=== PATIENT | female | born 1975 | race Caucasian/White ===

== ENCOUNTER 2020-03-03 08:53 | Outpatient (REF) | payer OTHER, SELFPAY ==
[2020-03-03 11:19] LABS: MANUAL DIFF FLAG NO
[2020-03-03 11:34] LABS: Basophils Percent Auto 0.6 % (0-2); Eosinophils Absolute Auto 0.1 X10*3/uL (0.0-0.4); Eosinophils Percent Auto 1.4 % (0-4); Hematocrit 44.5 % (37-47); Hemoglobin 15.1 g/dl (12.0-16.0); Imm Gran Abs Auto 0.03 X10*3/uL (0.00-0.03); Imm Gran Pct Auto 0.5 % (0.0-0.4); Lymphocytes Absolute Auto 1.3 X10*3/uL (1.2-4.9); Lymphocytes Percent Auto 19.2 % (20-40); Mean Corpuscular HGB Conc 33.9 g/dl (31.0-35.0); Mean Corpuscular Volume 91.4 fL (80-98); Mean Platelet Volume 11.3 fL (9.4-12.3); Monocytes Absolute Auto 0.5 X10*3/uL (0.1-1.2); Monocytes Percent Auto 7.8 % (2-11); Neutrophils Absolute Auto 4.6 X10*3/uL (2.0-8.3); Neutrophils Percent Auto 70.5 % (45-73); Platelet Count 280 X10*3/uL (160-400); Red Blood Count 4.87 X10*6/uL (4.20-5.50); Red Cell Distribution Width 11.3 % (11.0-16.0); White Blood Count 6.5 X10*3/uL (4.8-10.8)
[2020-03-03 12:13] LABS: Anion Gap 11 (12-20); Blood Urea Nitrogen 8 mg/dL (9-16); Calcium 8.9 mg/dL (8.4-10.2); Carbon Dioxide 26 mmol/L (22-29); Chloride 105 mmol/L (96-108); Estimated Glomerular Filt Rate > 60; Glucose Random 81 mg/dL (60-115); Potassium 4.1 mmol/l (3.3-5.1); Sodium 138 mmol/L (135-145)
[2020-03-03 12:19] LABS: TSH reflex Free T4 1.54 mIU/mL (0.32-4.0)
== END 2020-03-03 08:54 | disposition home or self-care (01) ==
LOC: HO.HMGCLDS 08:53
PROVIDERS: PCP Internal Medicine; Visit Provider Internal Medicine
DX: R10.13 Epigastric pain (principal); Z91.09 Other allergy status, other than to drugs and biological substances; G43.109 Migraine with aura, not intractable, without status migrainosus; F41.1 Generalized anxiety disorder
CPT/HCPCS: 36415; 80048; 84443; 85025

== ENCOUNTER 2020-09-11 09:13 | Outpatient (REF) | payer BC, SELFPAY ==
--- NOTE | ~2020-09-11 | MM_ITS ---
EXAMINATION: MM SCREENING DIGITAL BREAST TOMOSYNTHESIS, BILATERAL CLINICAL INFORMATION: Screening. Asymptomatic. The lifetime risk of breast cancer based on the Tyrer-Cuzick Model is 16%. COMPARISON: Mammography: 04/07/2019, 03/09/2018, 02/26/2017 TECHNIQUE: Digital breast tomosynthesis is performed in both the craniocaudal and mediolateral oblique views along with computer-aided detection (CAD). Synthesized 2D images are generated from the tomosynthesis. Additional left MLO view is provided. FINDINGS: The breasts are heterogeneously dense, which may obscure small masses (ACR BI-RADS breast composition Category c). There is inhomogeneous parenchymal pattern similar to prior exams. No developing density, significant mass or architectural abnormality. There are scattered punctate calcifications in each breast. The axilla and skin contours are unremarkable. There are no significant changes from prior exams. MM/MM tomosynthesis screening BI IMPRESSION: No mammographic evidence of malignancy. ASSESSMENT: BI-RADS 2: Benign RECOMMENDATION: Routine annual mammography screening. This patient's information was entered into a reminder system with a target due date for their next mammogram.
== END 2020-09-11 09:14 | disposition home or self-care (01) ==
LOC: HO.MAMMO 09:13
PROVIDERS: PCP Internal Medicine; Visit Provider Internal Medicine
DX: Z12.31 Encounter for screening mammogram for malignant neoplasm of breast (principal)
CPT/HCPCS: 77063; 77067

== ENCOUNTER 2020-11-22 11:01 | Outpatient (REF) | payer BC, SELFPAY ==
[2020-11-22 13:55] LABS: MANUAL DIFF FLAG NO
[2020-11-22 13:59] LABS: Basophils Percent Auto 0.7 % (0-2); Eosinophils Absolute Auto 0.1 X10*3/uL (0.0-0.4); Hematocrit 44.7 % (37-47); Hemoglobin 14.6 g/dl (12.0-16.0); Imm Gran Abs Auto 0.03 X10*3/uL (0.00-0.03); Imm Gran Pct Auto 0.5 % (0.0-0.4); Lymphocytes Absolute Auto 1.3 X10*3/uL (1.2-4.9); Lymphocytes Percent Auto 22.6 % (20-40); Mean Corpuscular HGB Conc 32.7 g/dl (31.0-35.0); Mean Corpuscular Hemoglobin 30.7 pg (27.0-33.0); Mean Corpuscular Volume 93.9 fL (80-98); Mean Platelet Volume 11.5 fL (9.4-12.3); Monocytes Absolute Auto 0.5 X10*3/uL (0.1-1.2); Monocytes Percent Auto 9.1 % (2-11); Neutrophils Absolute Auto 3.9 X10*3/uL (2.0-8.3); Neutrophils Percent Auto 65.1 % (45-73); Platelet Count 272 X10*3/uL (160-400); Red Blood Count 4.76 X10*6/uL (4.20-5.50); Red Cell Distribution Width 11.8 % (11.0-16.0); White Blood Count 5.9 X10*3/uL (4.8-10.8)
[2020-11-22 14:31] LABS: Alanine Aminotransferase 17 U/L (0-31); Albumin Level 4.1 g/dL (3.5-5.0); Alkaline Phosphatase 80 U/L (39-117); Anion Gap 13 (12-20); Aspartate Amino Transferase 18 U/L (5-31); Bilirubin Total 0.7 mg/dL (0.0-1.0); Blood Urea Nitrogen 9 mg/dL (9-16); Calcium 9.4 mg/dL (8.4-10.2); Carbon Dioxide 25 mmol/L (22-29); Chloride 104 mmol/L (96-108); Cholesterol 185 mg/dL; Estimated Glomerular Filt Rate > 60; Glucose Fasting 86 mg/dL (60-99); HDL Cholesterol 67 mg/dL; LDL Cholesterol Calculated 108 mg/dl; Potassium 4.3 mmol/L (3.3-5.1); Sodium 138 mmol/L (135-145); Total Protein 7.6 g/dL (6.5-8.0); Triglycerides 54 mg/dL
[2020-11-22 14:54] LABS: TSH reflex Free T4 2.26 uIU/mL (0.32-4.0)
== END 2020-11-22 11:02 | disposition home or self-care (01) ==
LOC: HO.HMGCLDS 11:01
PROVIDERS: PCP Internal Medicine; Visit Provider Internal Medicine
DX: Z00.01 Encounter for general adult medical examination with abnormal findings (principal); F41.1 Generalized anxiety disorder; G43.109 Migraine with aura, not intractable, without status migrainosus
CPT/HCPCS: 36415; 80053; 80061; 84443; 85025

== ENCOUNTER 2020-12-11 07:55 | Outpatient (REF) | payer BC, SELFPAY ==
[2020-12-12 10:46] LABS: BV Int Neg Control Negative (Negative); BV Int Pos Control Positive (Positive)
[2020-12-13 17:00] LABS: HPV mRNA E6/E7 rflx Not Detected (Not Detected)
== END 2020-12-11 07:56 | disposition home or self-care (01) ==
LOC: HO.LAB 07:55
PROVIDERS: PCP Internal Medicine; Visit Provider Advanced Practice Midwife
DX: Z01.411 Encounter for gynecological examination (general) (routine) with abnormal findings (principal); Z11.51 Encounter for screening for human papillomavirus (HPV); N89.8 Other specified noninflammatory disorders of vagina; R10.2 Pelvic and perineal pain; R23.2 Flushing
CPT/HCPCS: 87480; 87510; 87624; 87660; 88142

== ENCOUNTER 2021-03-27 09:47 | Outpatient (REF) | payer OTHER, SELFPAY ==
--- NOTE | ~2021-03-27 | XR_ITS ---
EXAMINATION: XR FOOT, LEFT CLINICAL INFORMATION: Pain. COMPARISON: None TECHNIQUE: AP, lateral, and oblique views of the left foot. FINDINGS: Bone alignment is normal. No fracture or dislocation is seen. The joint spaces are normal. The bones appear osteopenic. There is a plantar calcaneal spur. There is question of mild erosive changes of the plantar surface of the calcaneus near the spur. Soft tissues are otherwise unremarkable. XR/XR foot LT min 3V IMPRESSION: Mild osteopenia. Plantar calcaneal spur and question small erosion of the plantar calcaneus near the spur. Inflammatory arthritis should be considered.
== END 2021-03-27 09:48 | disposition home or self-care (01) ==
LOC: HO.HMGCX 09:47
PROVIDERS: PCP Internal Medicine; Visit Provider Internal Medicine
DX: M79.672 Pain in left foot (principal)
CPT/HCPCS: 73630

== ENCOUNTER 2021-09-12 09:27 | Outpatient (REF) | payer OTHER, SELFPAY ==
--- NOTE | ~2021-09-12 | MM_ITS ---
EXAMINATION: MM SCREENING DIGITAL BREAST TOMOSYNTHESIS, BILATERAL CLINICAL INFORMATION: Screening. Asymptomatic. The lifetime risk of breast cancer based on the Tyrer-Cuzick Model is 19%. COMPARISON: Mammography: 09/11/2020, 04/07/2019, 03/09/2018 TECHNIQUE: Digital breast tomosynthesis is performed in both the craniocaudal and mediolateral oblique views along with computer-aided detection (CAD). Synthesized 2D images are generated from the tomosynthesis. FINDINGS: The breasts are heterogeneously dense, which may obscure small masses (ACR BI-RADS breast composition Category c). There are no significant masses, abnormal calcifications, or other abnormalities. No developing density or architectural abnormality. The axilla and skin contours are unremarkable. Again, there are scattered punctate benign round calcifications. MM/MM tomosynthesis screening BI IMPRESSION: No mammographic evidence of malignancy. ASSESSMENT: BI-RADS 2: Benign RECOMMENDATION: Routine annual mammography screening. This patient's information was entered into a reminder system with a target due date for their next mammogram.
== END 2021-09-12 09:28 | disposition home or self-care (01) ==
LOC: HO.MAMMO 09:27
PROVIDERS: PCP Internal Medicine; Visit Provider Internal Medicine
DX: Z12.31 Encounter for screening mammogram for malignant neoplasm of breast (principal)
CPT/HCPCS: 77063; 77067

== ENCOUNTER 2021-12-12 08:41 | Outpatient (REF) | payer OTHER, SELFPAY ==
[2021-12-12 11:10] LABS: MANUAL DIFF FLAG NO
[2021-12-12 11:36] LABS: Basophils Percent Auto 0.6 % (0-2); Eosinophils Absolute Auto 0.1 X10*3/uL (0.0-0.4); Eosinophils Percent Auto 2.4 % (0-4); Hematocrit 42.6 % (37.0-47.0); Hemoglobin 14.2 g/dl (12.0-16.0); Imm Gran Abs Auto 0.02 X10*3/uL (0.00-0.03); Imm Gran Pct Auto 0.4 % (0.0-0.4); Lymphocytes Absolute Auto 1.1 X10*3/uL (1.2-4.9); Mean Corpuscular HGB Conc 33.3 g/dl (31.0-35.0); Mean Corpuscular Hemoglobin 30.4 pg (27.0-33.0); Mean Corpuscular Volume 91.2 fL (80.0-98.0); Mean Platelet Volume 11.5 fL (9.4-12.3); Monocytes Absolute Auto 0.5 X10*3/uL (0.1-1.2); Monocytes Percent Auto 9.9 % (2-11); Neutrophils Absolute Auto 3.3 x10*3/uL (2.0-8.3); Neutrophils Percent Auto 65.7 % (45-73); Platelet Count 267 X10*3/uL (160-400); Red Blood Count 4.67 X10*6/uL (4.20-5.50); Red Cell Distribution Width 11.7 % (11.0-16.0); White Blood Count 5.1 X10*3/uL (4.8-10.8)
[2021-12-12 12:26] LABS: Alanine Aminotransferase 14 U/L (0-31); Alkaline Phosphatase 82 U/L (39-117); Anion Gap 12 (12-20); Aspartate Amino Transferase 16 U/L (5-31); Bilirubin Total 0.5 mg/dL (0.0-1.0); Blood Urea Nitrogen 11 mg/dL (9-16); Calcium 8.8 mg/dL (8.4-10.2); Carbon Dioxide 25 mmol/L (22-29); Chloride 106 mmol/L (96-108); Cholesterol 156 mg/dL; Estimated Glomerular Filt Rate > 60; Glucose Fasting 109 mg/dL (60-99); HDL Cholesterol 47 mg/dL; LDL Cholesterol Calculated 94 mg/dl; Potassium 4.4 mmol/L (3.3-5.1); Sodium 139 mmol/L (135-145); Total Protein 7.3 g/dL (6.5-8.0); Triglycerides 75 mg/dL
== END 2021-12-12 08:42 | disposition home or self-care (01) ==
LOC: HO.HMGCLDS 08:41
PROVIDERS: Visit Provider Internal Medicine
DX: Z00.01 Encounter for general adult medical examination with abnormal findings (principal); F41.1 Generalized anxiety disorder; G43.109 Migraine with aura, not intractable, without status migrainosus; Z91.09 Other allergy status, other than to drugs and biological substances
CPT/HCPCS: 36415; 80053; 80061; 85025

== ENCOUNTER 2022-01-14 09:13 | Outpatient (REF) | payer OTHER, SELFPAY ==
[2022-01-15 12:54] LABS: BV Int Neg Control Negative (Negative); BV Int Pos Control Positive (Positive)
== END 2022-01-14 09:14 | disposition home or self-care (01) ==
LOC: HO.LAB 09:13
PROVIDERS: Visit Provider Advanced Practice Midwife
DX: N89.8 Other specified noninflammatory disorders of vagina (principal)
CPT/HCPCS: 87480; 87510; 87660

== ENCOUNTER 2022-08-06 09:04 | Outpatient (REF) | payer OTHER, SELFPAY ==
[2022-08-06 11:31] LABS: MANUAL DIFF FLAG NO
[2022-08-06 11:48] LABS: Basophils Absolute Auto 0.1 X10*3/uL (0.0-0.2); Basophils Percent Auto 0.9 % (0-2); Eosinophils Absolute Auto 0.1 X10*3/uL (0.0-0.4); Eosinophils Percent Auto 1.8 % (0-4); Hematocrit 43.5 % (37.0-47.0); Hemoglobin 14.4 g/dl (12.0-16.0); Imm Gran Abs Auto 0.03 X10*3/uL (0.00-0.03); Imm Gran Pct Auto 0.5 % (0.0-0.4); Lymphocytes Absolute Auto 1.1 X10*3/uL (1.2-4.9); Lymphocytes Percent Auto 19.5 % (20-40); Mean Corpuscular HGB Conc 33.1 g/dl (31.0-35.0); Mean Corpuscular Hemoglobin 30.8 pg (27.0-33.0); Mean Corpuscular Volume 93.1 fL (80.0-98.0); Mean Platelet Volume 11.8 fL (9.4-12.3); Monocytes Absolute Auto 0.5 X10*3/uL (0.1-1.2); Monocytes Percent Auto 8.5 % (2-11); Neutrophils Absolute Auto 3.9 x10*3/uL (2.0-8.3); Neutrophils Percent Auto 68.8 % (45-73); Platelet Count 243 X10*3/uL (160-400); Red Blood Count 4.67 X10*6/uL (4.20-5.50); Red Cell Distribution Width 11.7 % (11.0-16.0); White Blood Count 5.7 X10*3/uL (4.8-10.8)
[2022-08-06 11:59] LABS: Estimated Average Glucose 91 mg/dL; Hemoglobin A1c % 4.8 %
[2022-08-06 12:33] LABS: Alanine Aminotransferase 14 U/L (0-31); Albumin Level 4.1 g/dL (3.5-5.0); Alkaline Phosphatase 67 U/L (39-117); Anion Gap 11 (12-20); Aspartate Amino Transferase 15 U/L (5-31); Bilirubin Total 0.7 mg/dL (0.0-1.0); Blood Urea Nitrogen 10 mg/dL (9-16); Calcium 8.9 mg/dL (8.4-10.2); Carbon Dioxide 26 mmol/L (22-29); Chloride 106 mmol/L (96-108); Cholesterol 164 mg/dL; Estimated Glomerular Filt Rate > 60; Glucose Fasting 92 mg/dL (60-99); HDL Cholesterol 49 mg/dL; LDL Cholesterol Calculated 104 mg/dl; Potassium 4.1 mmol/L (3.3-5.1); Sodium 139 mmol/L (135-145); Triglycerides 58 mg/dL
== END 2022-08-06 09:05 | disposition home or self-care (01) ==
LOC: HO.HMGCLDS 09:04
PROVIDERS: PCP Internal Medicine; Visit Provider Internal Medicine
DX: E66.09 Other obesity due to excess calories (principal); G43.109 Migraine with aura, not intractable, without status migrainosus; F41.1 Generalized anxiety disorder; R10.13 Epigastric pain; F33.9 Major depressive disorder, recurrent, unspecified; R73.01 Impaired fasting glucose; Z91.09 Other allergy status, other than to drugs and biological substances
CPT/HCPCS: 36415; 80053; 80061; 83036; 85025

== ENCOUNTER 2022-09-18 09:24 | Outpatient (REF) | payer OTHER, SELFPAY ==
--- NOTE | ~2022-09-18 | MM_ITS ---
EXAMINATION: MM SCREENING DIGITAL BREAST TOMOSYNTHESIS, BILATERAL CLINICAL INFORMATION: Screening. Asymptomatic. The lifetime risk of breast cancer based on the Tyrer-Cuzick Model is 13.1%. COMPARISON: Mammography: 09/12/2021 and studies dating back to 02/19/2017 TECHNIQUE: Digital breast tomosynthesis is performed in both the craniocaudal and mediolateral oblique views along with computer-aided detection (CAD). Synthesized 2D images are generated from the tomosynthesis. FINDINGS: The breasts are heterogeneously dense, which may obscure small masses (ACR BI-RADS breast composition Category c). There is a stable proximal pattern of the right breast with a few circumscribed densities being present. No new abnormal dominant mass or suspicious grouping of microcalcifications identified. About the superior aspect of the left breast, 4 cm from the nipple, there is a circumscribed density measuring approximately 1.2 cm in diameter. There may be an adjacent partially circumscribed density with lobulation versus some superimposed parenchyma. Spot compression view recommended. MM/MM tomosynthesis screening BI IMPRESSION: Left breast density for further evaluation. ASSESSMENT: BI-RADS 0: Incomplete - Need Additional Imaging Evaluation RECOMMENDATION: 1. Additional views of the left breast. 2. Targeted ultrasound if warranted after review of the additional views. 3. Radiology department staff will contact the patient for additional imaging. This patient's information was entered into a reminder system with a target due date for their next mammogram.
== END 2022-09-18 09:25 | disposition home or self-care (01) ==
LOC: HO.MAMMO 09:24
PROVIDERS: PCP Internal Medicine; Visit Provider Internal Medicine
DX: Z12.31 Encounter for screening mammogram for malignant neoplasm of breast (principal)
CPT/HCPCS: 77063; 77067

== ENCOUNTER 2022-10-21 13:10 | Outpatient (REF) | payer OTHER, SELFPAY ==
--- NOTE | ~2022-10-21 | MM_ITS ---
EXAMINATION: MM DIAGNOSTIC DIGITAL BREAST TOMOSYNTHESIS, LEFT US DIAGNOSTIC ULTRASOUND BREAST, LEFT CLINICAL INFORMATION: Recall from screening for lobulated asymmetry anterior upper left breast, possibly fibrocystic change. COMPARISON: Multiple prior mammography exams including most recent 09/18/2022 and bilateral breast ultrasound 02/26/2017. TECHNIQUE: Digital breast tomosynthesis is performed. 2D images are generated from the tomosynthesis. The following views are obtained: Spot CC, spot ML. Ultrasound left breast is targeted to the upper outer quadrant using grayscale imaging and color Doppler without and with harmonics. FINDINGS: The breasts are heterogeneously dense, which may obscure small masses (ACR BI-RADS breast composition Category c). The additional views show subtle curvilinear asymmetry upper breast on MLO tomography. No definite CC correlate. No architectural abnormality. Ultrasound left breast demonstrates grouped cysts upper outer breast corresponding to the mammography and measuring approximately 1.7 x 1.2 cm. There is increased through-transmission of sound. There is also a smaller cyst 3:00 position 5 cm from nipple measuring 0.8 cm. There is no solid mass or architectural abnormality. Results are discussed with the patient at time of visit. MM/MM tomosynthesis added views L IMPRESSION: -Fibrocystic changes upper outer left breast corresponding to recent mammography, largest 1.7 cm. ASSESSMENT: BI-RADS 2: Benign RECOMMENDATION: Routine annual mammography screening. This patient's information was entered into a reminder system with a target due date for their next mammogram.
== END 2022-10-21 13:11 | disposition home or self-care (01) ==
LOC: HO.MAMMO 13:10
PROVIDERS: PCP Internal Medicine; Visit Provider Internal Medicine
DX: R92.2 Inconclusive mammogram (principal)
CPT/HCPCS: 76642; 77061; 77065

== ENCOUNTER 2023-09-24 08:24 | Outpatient (REF) | payer BC, SELFPAY ==
--- NOTE | ~2023-09-24 | MM_ITS ---
EXAMINATION: MM SCREENING DIGITAL BREAST TOMOSYNTHESIS, BILATERAL CLINICAL INFORMATION: Screening. Asymptomatic. COMPARISON: Mammography: This study is compared with prior exams dating back to 2019. TECHNIQUE: Digital breast tomosynthesis is performed in both the craniocaudal and mediolateral oblique views along with computer-aided detection (CAD). Synthesized 2D images are generated from the tomosynthesis. FINDINGS: The breasts are heterogeneously dense, which may obscure small masses (ACR BI-RADS breast composition Category c). There are no significant masses, abnormal calcifications, or other abnormalities. There are scattered, bilateral, benign calcifications which are unchanged. MM/MM tomosynthesis screening BI IMPRESSION: No mammographic evidence of malignancy. ASSESSMENT: BI-RADS BI-RADS 2 - Benign Findings RECOMMENDATION: Routine annual mammography screening. 1 year F/U This examination should not preclude the clinical evaluation of a suspicious palpable abnormality. This patient's information was entered into a reminder system with a target due date for their next mammogram.
== END 2023-09-24 08:25 | disposition home or self-care (01) ==
LOC: HO.MAMMO 08:24
PROVIDERS: PCP Physician Assistant Medical; Visit Provider Internal Medicine
DX: Z12.31 Encounter for screening mammogram for malignant neoplasm of breast (principal)
CPT/HCPCS: 77063; 77067

== ENCOUNTER → 2023-09-24 08:30 | Outpatient (BNV) | payer BC, SELFPAY | PROVIDERS: PCP Physician Assistant Medical; Visit Provider Radiology Diagnostic Radiology | DX: Z12.31 Encounter for screening mammogram for malignant neoplasm of breast (principal) | CPT/HCPCS: 77063; 77067 ==

== ENCOUNTER 2024-10-23 07:26 | Outpatient (REF) | payer BC, SELFPAY ==
--- OUTSIDE RECORDS SUMMARY | 2024-10-23 07:28 | XMS_ITS | Data Portability ---
Author Organization [place] - [facility], Allergy Address [address] [place] [id number] Care Team Providers Care Hair Or Beauty Salon Assistant Name Role Phone JASMYNE ARANA Referring Provider JASMYNE ARANA Primary Care Provider Assessment Encounter Date Assessment Date Assessment LastModified by Organization Details LastModified Time 12/25/2023 12/25/2023 The patient appears to be doing well following left ear surgery. The patient was instructed to begin a 14 day course of ciprofloxacin drops BID and maintain strict dry ear precautions until followup with Dr. Knott in 6-8 weeks. All questions were answered. [email or web address] Not available 12/25/2023 12:46:20 02/10/2024 02/10/2024 The left ear has healed well following laser stapedotomy with vein graft. All water and activity precautions are lifted. Audiometric testing today showed improvement in the hearing compared to preoperative audiogram. Patient still has some mild residual conductive component to the hearing loss which may improve over time. Recommend final recheck and audiogram in about 4 months. We will be able to determine if she has any residual hearing loss that may be suitable for amplification. [email or web address] Not available 02/10/2024 09:22:49 06/07/2024 06/07/2024 The left ear has healed well following laser stapedotomy with vein graft. All water and activity precautions are lifted. Audiometric testing today showed improvement in the hearing compared to preoperative audiogram. She still has some mild residual low-frequency conductive hearing loss which is likely to not improve over time. Fortunately she is extremely pleased with her hearing overall and has no complaints with regards to the residual loss. We did discuss the possibility that she could develop otosclerosis in the right ear, but there is no sign of this. Recommend follow-up audiogram in 2 to 3 years. [email or web address] Not available 06/07/2024 09:52:41 Plan of Treatment Reminders Order Date Submit Date Provider Last Modified By Organization Details Last Modified Time Details Appointments None recorded. Lab None recorded. Referral None recorded. Procedures None recorded. Surgeries stapedectom y/stapedoto my w/ reestablish ment of ossicular continuity (SURG) 2023 024 [email or web address] Not available 13:57:09 Imaging None recorded. Medication Orders ciprofloxac in 0.3 % eye drops 2023 024 [facility] #[id number], [address] [place] [address], [id number], 08:43:29 Patient TargetsNo targets recorded. Patient InstructionsNo instructions recorded. Reason for Referral None Reported. Results Created Date Observation Date Name Description Value Unit Range Abnormal Flag Note LastModifiedBy Organization Detail LastModifiedTime 01/06/2009/10/2023 imagi ng/di agnos tic resul t No observ ation record ed. [email or web address] Not Available 21:39:25 02/11/20 audio gram No observ ation record ed. Not Available 01/18 11:32:39 06/08/19 audio gram No observ ation record ed. [email or web address] Not Available 2024 10:20:28 Result Notes None recorded. Problems Name Problem SNOMED Code Status Onset Date Resolution Date Notes Provider Name and Address Organization Details Recorded Time Mixed conductiv e and sensorine ural hearing loss of left ear 14858139577 107 Active 2023 REYNALDO KNOTT MD [address] [place], [place] [address], [phone] , [facility] - [facility] 20:34:36 Sensorine ural hearing loss in right ear 78012721429 100 Active 2023 REYNALDO KNOTT MD [address] [place] [address],[place] [address], [place], [address] , [place] - [facility] 4 20:34:39 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 10938025375 00571 Active 2023 REYNALDO KNOTT MD [address] [facility],[place] [address], [place], [phone] , [place] - [facility] 4 12:05:22 Otosclero sis 71946894 Active 2023 Unspecifi ed otosclero sis, left ear; Note: Date Diagnosed : 09/10/2023 10:47 AM (H80.92) Not Available [facility] 4 02:26:52 Sensorine ural hearing loss of bilateral ears 763794372 Active 2024 JEB CHO [address] [facility],[place] [address], [place], [address] , [place] - [facility] 5 09:35:59 Problem Notes None recorded. Procedures Surgical History Date Name Laterality Status Provider Name and Address Organization Details Recorded Time 06/07/19 Comp Audio with Tymps - 44530 & 34828 completed JEB CHO [address] [place] [address],[place] [address], [place], [phone], [facility] - [facility] 06/07/2024 09:35:41 02/10/20 EAC debris removal with microscope completed REYNALDO KNOTT MD [address] [facility],[place] [address], [place], [address], [facility] - [facility] 02/10/2024 08:52:53 02/10/20 Air only Audio - 70065 completed JEB HATCH [address] [place] [address],[place] [address], [place], [phone], [place] - [facility] 02/10/2024 09:00:43 02/10/20 SRT & Speech Recognition - 37304 completed JEB HATCH [address] [place] [address],[address], [address], [place] - [facility] 02/10/2024 09:00:56 12/17/19 24 STAPEDECTOMY/STAPE DOTOMY W/ REESTABLISHMENT OF OSSICULAR CONTINUITY (SURG) completed REYNALDO KNOTT MD [address] [place] [address], [phone], [facility] - [facility] 12/17/2023 11:00:43 Hysterectomy completed Erika Meehan [place] - [facility] 11/25/2023 11:35:01 Imaging Results None recorded. Procedure Notes None recorded. Medical Equipment None Reported. Allergies Allergen ID Allergen Name Allergen Category Reaction Reaction Severity Criticality Documentation Date Start Date Code Code System Note Provider Name and Address Organization Details Recorded Time 062542 Penicilli n Not available other Not available Not available 12/19/2023 53630 RxNorm React ion: Unkno wn; Not Available [facility] 00:28:28 Medications Name Sig Start Date Stop Date Status Note LastModified by Organization Details LastModified Time buspirone 5 mg tablet TAKE 1 TABLET BY MOUTH TWICE A DAY 11/24 completed Not Available Not Available Not Available cetirizin e 10 mg tablet TAKE 1 TABLET BY MOUTH EVERY DAY active Not Available Not Available No t Available sucralfat e 1 gram tablet TAKE 1 TABLET (ORAL) 4 TIMES PER DAY NEEDED 11/24 completed Not Available Not Available Not Available sertralin e 100 mg tablet TAKE 1 TABLET BY MOUTH EVERY DAY active Not Available Not Available No t Available ciproflox acin 0.3 % eye drops INSTILL 4 DROPS INTO LEFT EAR TWICE DAILY FOR 14 DAYS 02/09 completed Not Available Not Available Not Available propranol ol 20 mg tablet TAKE 1 TABLET BY MOUTH EVERY DAY active Not Available Not Available No t Available propranol ol 02/09 completed Not Available Not Available Not Available [facility] active Medicati on ID: [id number] B rand Name: layotec S end Method: E-Prescr ibed Sub s Allowed: subs OK Medic ationGen ericName : zyrtec Not Available Not Available Not Available Vitals Date Recorded Body height Body weight Provider Name and Address Organization Details Last Updated DateTime 06/07/2024 167.64 cm 82392.63 g Erika Meehan [place] - [facility] 06/07/2024 09:25:04 Date Recorded Body height Body mass index (BMI) Body weight Provider Name and Address Organization Details Last Updated DateTime 11/25/2023 167.64 cm 29.1 kg/m2 42878.63 g Erika Meehan [place] - [facility] 11/25/2023 11:31:30 Date Recorded Body height Body mass index (BMI) Body weight Provider Name and Address Organization Details Last Updated DateTime 12/25/2023 167.64 cm 29.1 kg/m2 66779.63 g Marcy Sherwood [place] - [facility] 12/25/2023 11:07:36 Date Recorded Body height Body weight Provider Name and Address Organization Details Last Updated DateTime 02/10/2024 167.64 cm 94503.63 g Erika Meehan [place] [facility] 02/10/2024 08:43:05 Social History None recorded. Functional Status None recorded. Mental Status None recorded. Family History Nothing Reported. Medical History Condition Response Migraines Y Anxiety Y Gynecological HistoryNo gynecological history recorded. Obstetrics History GPAL:G 0 P 0 0 0 0 Past Encounters Encounter ID Performer Location Encounter Start Date Encounter Closed Date Diagnosis/Indication Diagnosis SNOMED-CT Code Diagnosis ICD10 Code Diagnosis Note [id number] REYNALDO KNOTT MD [facility] [address] [address] 11/25/2023 11:14:07 11/25/2023 12:15:45 Mixed conductive and sensorineural hearing loss of left ear [id number] 9107 H90.A32 Sensorineu ral hearing loss in right ear 5920601648 9100 H90.A21 Mild high-frequ ency sensorineu ral hearing loss in the right ear, no need for interventi on on the right side. Otoscleros is of ossicle of left ear 4929233232 481746 H80.92 The patient's history, physical exam, audiogram, and tuning fork testing are consistent with a conductive component of left-sided hearing loss secondary to otoscleros is. The pathophysi ology of otoscleros is was discussed with the patient, and the stapes brochure discussed in detail. We discussed the available options including the use of amplificat ion as well as surgical options. We discussed laser stapedotom y with vein graft in detail, going over the surgical steps in the brochure. We discussed the 1% risk of partial or complete sensorineu ral hearing loss as a result of surgery, the 3-4% risk that the hearing will stay the same after surgery, but overall a 95% chance that the patient will experience a significan t improvemen t in the hearing in the operated ear. We discussed the risks of surgery including the risk of bleeding, infection, temporary or permanent taste disturbanc e, temporary or long-term balance disturbanc e, tinnitus, or tympanic membrane perforatio n. We also discussed the need to harvest a small vein graft from the back of the hand to serve as a seal around the base of the prosthesis as it enters the inner ear. We discussed anesthetic options including a general anesthetic versus a local anesthetic with intravenou s sedation. After full discussion , the patient would like to proceed with left sided stapes surgery under general anesthesia . I have provided patient with the contact informatio n for my surgical endoscopist. We will begin the scheduling process and see the patient back at the time of surgery. Patient will not require medical clearance from their primary care provider preoperati vely. [id number] SHILPI MORAN PA-C [facility] [address] [place] [address] 12/25/2023 11:01:03 12/25/2023 11:20:33 Otosclerosis of ossicle of left ear 6399244582 400537 H80.92 [id number] REYNALDO KNOTT MD [facility] [address] [place] [address] 02/10/2024 08:40:00 02/10/2024 09:23:18 Otosclerosis 16157914 H80.92 Mixed cond uctive and sensorineural hearing loss of left ear 3419787896 9107 H90.A32 Left Ear:Mild sloping to a moderate MHL with excellent speech discrimina tion. [id number] REYNALDO KNOTT MD [facility] [address] [place] [address] 06/07/2024 09:03:29 06/07/2024 09:53:36 Otosclerosis 15146957 H80.92 Sensorineu ral hearing loss of bilateral ears 567282684 H90.3 Audiologic al evaluation results: Right ear: Normal through 2 kHz sloping to severe sensorineu ral hearing loss with excellent word recognitio n. Left ear: Borderline normal sloping to severe sensorineu ral hearing loss with excellent word recognitio n. Tympanomet ry: Right Ear:Type C Left Ear:Type A Health Concerns Section Related Observation LastModified by Organization Detai ls LastModified Time None Recorded Concern Status LastModified by Organization Details LastModified Time None Recorded Advance Directives Directive None Recorded Payers Insurance Date Sequence Insurance Name Policy Number Policy Adames Covered Member ID Adames Member ID Guarantor Name 01/11/2024 PAYMENT PLAN Irma Francis 08/30/2024 1 [facility] (O) [id number] Irma Graves Penny [id number] Irma Francis Notes Date Note Type Note Provider Name and Address Organization Details Recorded Time 11/25/2023 text/html Patient previous ly seen by Dr. Cisneros. She had audiometric testing showing a moderately severe left sided mixed hearing loss which was primarily conductive in nature. Normal tympanic membrane with absent tympanic reflexes noted which was consistent with left-sided otosclerosis. She is bothered by the hearing loss as well as the tinnitus in the left ear. No significant history of head trauma. No family history of early onset hearing loss. REYNALDO KNOTT MD [address] [place] [address], [address], [place] - [facility] 11/25/2023 12:10:56 12/25/2023 text/html Patient comes in for first postoperative visit following left-sided laser stapedotomy by Dr Knott. Uneventful postoperative course. Patient has noticed improvement in the hearing. No balance disturbance. No taste disturbance. REYNALDO KNOTT MD [address] [place] [address], [address], [facility] 12/26/2023 07:30:11 02/10/2024 text/html Patient is now a bout six weeks status post left-sided laser stapedotomy with vein graft. Patient has done well postoperatively and reports no pain or discharge. Patient reports that the hearing is improved. She thinks that the hearing in the left ear is now similar to that of the right ear. REYNALDO KNOTT MD [address] [facility],[address], [address], [place] - [facility] 02/10/2024 09:23:33 06/07/2024 text/html Patient is now a bout six months status post left-sided laser stapedotomy with vein graft. Patient has done well postoperatively and reports no pain or discharge. Had some residual CHL postop, comes in for 6-month audiogram. Patient reports that she is doing well in all of her listening environments and is quite pleased with her hearing results. Patient notes mild dizziness when she gets pressurization of the left ear either with a fingertip or blowing her nose. REYNALDO KNOTT MD [address] [facility],[place] [address], [place], [address], [facility] 06/07/2024 09:53:01 OBGyn Episode No OBEpisode recorded.
== END 2024-10-23 07:27 | disposition home or self-care (01) ==
LOC: HO.MAMMO 07:26
PROVIDERS: PCP Physician Assistant Medical; Visit Provider Physician Assistant Medical
DX: Z12.31 Encounter for screening mammogram for malignant neoplasm of breast (principal)
CPT/HCPCS: 77063; 77067

== ENCOUNTER → 2024-10-23 07:30 | Outpatient (BNV) | payer BC, SELFPAY | PROVIDERS: PCP Physician Assistant Medical; Visit Provider Internal Medicine | DX: Z12.31 Encounter for screening mammogram for malignant neoplasm of breast (principal) | CPT/HCPCS: 77063; 77067 ==